=== PATIENT | female | born 1975 | race Caucasian/White ===

== ENCOUNTER 2016-12-25 15:28 | Emergency (ER) | payer OTHER ==
[~2016-12-25] VITALS: Ht 170.2 cm; Wt 64.9 kg
[2016-12-25 16:11] VITALS: BP 128/85
== END 2016-12-25 16:12 | disposition home or self-care (01) ==
LOC: EME 15:28
PROC: 3E0234Z Introduction of Serum, Toxoid and Vaccine into Muscle, Percutaneous Approach (ICD-10-PCS; principal; 2016-12-25)
DX: S40.812A Abrasion of left upper arm, initial encounter (principal); W26.8XXA Contact with other sharp object(s), not elsewhere classified, initial encounter; Y99.0 Civilian activity done for income or pay; Z23 Encounter for immunization; Z85.850 Personal history of malignant neoplasm of thyroid
CPT/HCPCS: 99281; 99283